=== PATIENT | female | born 1955 | race Caucasian/White ===

== ENCOUNTER 2022-07-03 20:49 | Inpatient (IN) | payer MEDICAID, OTHER ==
[~2022-07-03] VITALS: Ht 157.5 cm; Wt 37.8 kg
[2022-07-03] MEDS ORDERED: MORPHINE SULFATE 4 MG/ML SYR/VIAL IV ONE (21:15)
[2022-07-03] MEDS ORDERED: LACTATED RINGER'S 1,000 ML IV ONE (21:15)
[2022-07-03] MEDS ORDERED: ALBUTEROL SULF 2.5 MG/0.5ML(0.5%) NEB SOLN NEB ONE (21:15)
[2022-07-03] MEDS ORDERED: ONDANSETRON HCL 4 MG/2 ML VIAL IV ONE (21:15)
[2022-07-03 21:37] LABS: Red Cell Distribution Width 13.6 % (11.8-14.3)
[2022-07-03 21:39] LABS: Basophils # (auto) 0.1 10 ^3/uL (0-0.2); Basophils % (auto) 1.1 % (0.0-2.0); Eosinophils # (auto) 0.2 10 ^3/uL (0-0.8); Hematocrit 40.3 % (36.0-46.0); Hemoglobin 13.9 g/dL (12.2-16.2); Lymphocytes # (auto) 2.5 10 ^3/uL (0.4-5.4); Lymphocytes % (auto) 31.6 % (10.0-50.0); Mean Corpuscular Hemoglobin 33.1 pg (28.0-32.0); Mean Corpuscular Hgb Conc. 34.5 g/dL (32.0-36.0); Mean Corpuscular Volume 96.1 fL (80.0-100.0); Monocytes # (auto) 0.5 10 ^3/uL (0-1.3); Monocytes % (auto) 6.3 % (0.0-12.0); Neutrophils # (auto) 4.7 10 ^3/uL (1.6-8.6); Nucleated Red Blood Cells % 0.1 %; Red Blood Cells 4.19 10^6/uL (4.0-5.20); White Blood Cell 7.9 10^3/uL (4.4-10.8)
[2022-07-03 21:53] LABS: Albumin 2.7 g/dL (3.4-5.0); Calcium 7.8 mg/dL (8.5-10.1)
[2022-07-03 21:56] LABS: Bilirubin, Total 0.2 mg/dL (0.2-1.0); Total Protein 6.2 g/dL (6.4-8.2)
[2022-07-03 22:03] LABS: INR 1.07 (0.9-1.15); Partial Thromboplastin Time 29.4 sec (24.6-33.4)
[2022-07-03] MEDS ORDERED: POTASSIUM EFFERVESENT TAB 25 MEQ PO ONE (22:30)
[2022-07-04] MEDS ORDERED: MORPHINE SULFATE 4 MG/ML SYR/VIAL IV ONE (01:00)
[2022-07-04 01:37] LABS: Urine Bacteria NONE SEEN /hpf (None Seen); Urine Blood Negative /uL (Negative); Urine Hyaline Cast FEW /lpf (0 - 2); Urine WBC 2 /hpf (0 - 5)
[2022-07-04] MEDS ORDERED: LORazepam 2MG/ML-1ML VIAL IV ONE (04:30)
[2022-07-04] MEDS ORDERED: TEMAZEPAM 15 MG CAP PO PRN (06:15)
[2022-07-04] MEDS ORDERED: ACETAMINOPHEN 325 MG TAB PO PRN (06:15)
[2022-07-04] MEDS ORDERED: NITROGLYCERIN 0.4 MG SL TAB SL PRN (06:15)
[2022-07-04 06:35] LABS: Cholesterol 102 mg/dL (< 200); HDL Cholesterol 82 mg/dL (40-59); LDL Cholesterol 14 mg/dL (< 100); Triglycerides 143 mg/dL (< 150)
[2022-07-04] MEDS: METOPROLOL TARTRATE 25 MG TAB PO SCH ×3 (06:36→23:00)
[2022-07-04] MEDS: ENOXAPARIN SOD 40 MG/0.4 ML SYRINGE SC SCH (09:48)
[2022-07-04] MEDS: ASPirin 81 mg TAB PO SCH (09:49)
[2022-07-04] MEDS: PANTOPRAZOLE 40 MG TAB PO SCH (09:49)
[2022-07-04] MEDS: ONDANSETRON HCL 4 MG/2 ML VIAL IV PRN ×2 (12:50→19:10)
[2022-07-04] MEDS: MORPHINE SULFATE INJ 2 MG/ml SYRG IV PRN ×2 (12:51→19:11)
[2022-07-04 13:06] LABS: Amphetamine Screen, Urine POSITIVE (NEGATIVE); Barbiturate Scree,Urine NEGATIVE (NEGATIVE); Benzodiazephine Screen, Urine NEGATIVE (NEGATIVE); Cannabinoid Screen, Urine POSITIVE (NEGATIVE); Cocaine Screen, Urine NEGATIVE (NEGATIVE)
[2022-07-04 13:17] LABS: Opiate Scree,Urine POSITIVE (NEGATIVE); Phencyclidine Screen, Urine NEGATIVE (NEGATIVE)
[2022-07-04 13:30] LABS: BUN/Creatinine Ratio 21.8; Calcium 7.8 mg/dL (8.5-10.1); Magnesium 1.4 mg/dL (1.6-2.6); Potassium 3.8 mmol/L (3.5-5.1)
[2022-07-04] MEDS: SODIUM CHLORIDE 0.9% 1,000 ML IV SCH (14:12)
[2022-07-04] MEDS ORDERED: ATORVASTATIN 20 MG TAB PO SCH (22:00)
[2022-07-04 22:24] VITALS: BP 137/90
[2022-07-04 22:25] VITALS: BP 137/90
[2022-07-05] MEDS: HYDROcodone-ACET 5/325MG TAB PO PRN ×2 (00:06→06:56)
[2022-07-05] MEDS: SODIUM CHLORIDE 0.9% 1,000 ML IV SCH (02:05)
[2022-07-05 05:00] VITALS: BP 149/98
[2022-07-05 08:24] LABS: BUN/Creatinine Ratio 18.3; Calcium 7.5 mg/dL (8.5-10.1); Potassium 3.5 mmol/L (3.5-5.1)
[2022-07-05 08:30] VITALS: BP 118/72
[2022-07-05] MEDS ORDERED: POTASSIUM EFFERVESENT TAB 25 MEQ PO ONE (10:30)
[2022-07-05] MEDS: PANTOPRAZOLE 40 MG TAB PO SCH (11:16)
[2022-07-05] MEDS: ASPirin 81 mg TAB PO SCH (11:17)
[2022-07-05] MEDS: METOPROLOL TARTRATE 25 MG TAB PO SCH (11:17)
[2022-07-05] MEDS: ENOXAPARIN SOD 40 MG/0.4 ML SYRINGE SC SCH (11:18)
[2022-07-05] MEDS: MAGNESIUM SULFATE 1GM/100ML 100 ML IV SCH ×2 (11:37→12:00)
[2022-07-05] MEDS ORDERED: SACUBITRIL-VALSARTAN 24mg/26mg TAB PO SCH (22:00)
[2022-07-06] MEDS ORDERED: EMPAGLIFLOZIN 10 MG TAB PO SCH (07:00)
== END 2022-07-05 12:26 | disposition left against medical advice (07) | DRG 198 ==
LOC: ER 20:49 → EDBD 20:49 → TELE 07-04 06:07 → TELE-WESTW 07-04 21:25
PROVIDERS: ADMIT Nurse Practitioner; ATTEND Family Medicine
DX: I25.10 Atherosclerotic heart disease of native coronary artery without angina pectoris (principal); R64 Cachexia; E87.1 Hypo-osmolality and hyponatremia; E87.8 Other disorders of electrolyte and fluid balance, not elsewhere classified; E87.6 Hypokalemia; F15.10 Other stimulant abuse, uncomplicated; F17.210 Nicotine dependence, cigarettes, uncomplicated; I10 Essential (primary) hypertension; F10.129 Alcohol abuse with intoxication, unspecified; Z20.822 Contact with and (suspected) exposure to COVID-19; Z53.29 Procedure and treatment not carried out because of patient's decision for other reasons; I47.1 Supraventricular tachycardia; I25.2 Old myocardial infarction; Z90.49 Acquired absence of other specified parts of digestive tract; Z68.1 Body mass index [BMI] 19.9 or less, adult
CPT/HCPCS: 36415; 71045; 71275; 74176; 80048; 80053; 80061; 80307; 80320; 81001; 83036; 83690; 83735; 83880; 84443; 84484; 85025; 85379; 85610; 85730; 87426; 87804; 93005; 93306; 96361; 96372; 96374; 96375; 96376; G0378; J2405

== ENCOUNTER 2023-08-10 07:06 | Inpatient (IN) | payer OTHER, MEDICARE, MEDICAID ==
[~2023-08-10] VITALS: Ht 157.5 cm; Wt 33.4 kg
[~2023-08-10 07:06] MED LIST: CARV3.1240 PO; DOCU-94 PO; ERGO1CAP12 PO; PANT-62 PO; SERT25TA28 PO; SPIR25TA8 PO; THIA100T10 PO
[2023-08-10 09:00] LABS: Basophils # (auto) 0.1 10 ^3/uL (0-0.2); Eosinophils # (auto) 0.1 10 ^3/uL (0-0.8); Eosinophils % (auto) 0.6 % (0.0-7.0); Hemoglobin 8.6 g/dL (12.2-16.2); Lymphocytes # (auto) 2.3 10 ^3/uL (0.4-5.4); Lymphocytes % (auto) 17.6 % (10.0-50.0); Mean Corpuscular Hemoglobin 32.3 pg (28.0-32.0); Mean Corpuscular Hgb Conc. 31.8 g/dL (32.0-36.0); Mean Corpuscular Volume 101.8 fL (80.0-100.0); Monocytes # (auto) 0.7 10 ^3/uL (0-1.3); Neutrophils % (auto) 75.8 % (37.0-80.0); Red Blood Cells 2.66 10^6/uL (4.0-5.20); Red Cell Distribution Width 14.6 % (11.8-14.3); White Blood Cell 13.2 10^3/uL (4.4-10.8)
[2023-08-10] MEDS: SODIUM CHLORIDE 0.9% 1,000 ML IV ONE (09:15)
[2023-08-10 09:25] LABS: Platelet Estimate Markedly Increased
[2023-08-10 09:36] LABS: Chloride 101 mmol/L (98-107); Potassium 4.7 mmol/L (3.5-5.1); Sodium 133 mmol/L (136-145)
[2023-08-10 09:37] LABS: Anion Gap 5 (5-15); Calcium 7.9 mg/dL (8.5-10.1); Carbon Dioxide 27 mmol/L (20-30)
[2023-08-10 09:42] LABS: Blood Urea Nitrogen 18 mg/dL (9-23); Glucose 77 mg/dL (74-106)
[2023-08-10] MEDS: HYDROcodone-ACET 5/325MG TAB PO ONE (10:57)
[2023-08-10] MEDS ORDERED: NITROGLYCERIN 0.4 MG SL TAB SL PRN (12:30)
[2023-08-10] MEDS ORDERED: DOCUSATE SOD 100 MG CAP PO PRN (12:30)
[2023-08-10] MEDS ORDERED: MORPHINE SULFATE INJ 2 MG/ml SYRG IV PRN (12:30)
[2023-08-10] MEDS ORDERED: ACETAMINOPHEN 325 MG TAB PO PRN (12:30)
[2023-08-10 14:31] VITALS: PULSE 101; RESP 12; O2SAT 95
[2023-08-10] MEDS: cefTRIAXone 1GM/50ML D5W 50 ML IV ONE (15:34)
[2023-08-10] MEDS: MORPHINE SULFATE INJ 2 MG/ml SYRG IV PRN (15:35)
[2023-08-10] MEDS: SODIUM CHLORIDE 0.9% 1,000 ML IV SCH (16:14)
[2023-08-10 18:17] LABS: Urine Bacteria None Seen /hpf (None Seen); Urine WBC None Seen /hpf (0 - 5)
[2023-08-10 18:25] LABS: Urine Blood Negative /uL (Negative); Urine Clarity Turbid (Clear); Urine Color Yellow (Yellow); Urine Protein, UAD Negative (Negative); Urine Specific Gravity 1.022 (1.001-1.035); Urine Urobilinogen Normal (Negative)
[2023-08-10 19:30] VITALS: PULSE 90; RESP 13; O2SAT 96
[2023-08-10] MEDS: HYDROcodone-ACET 5/325MG TAB PO PRN (21:15)
[2023-08-10] MEDS: CARVEDILOL 3.125 MG TAB PO SCH (22:08)
[2023-08-10 22:54] VITALS: PULSE 97; RESP 16; O2SAT 100
[2023-08-10 23:00] VITALS: BP 97/60; PULSE 101; RESP 18; TEMP 97.9; O2SAT 100
[2023-08-11] VITALS (8 sets, daily range): BP systolic 107–132; BP diastolic 62–82; PULSE 100–112; RESP 17–20; TEMP 97.3–98.2; O2SAT 97–100
[2023-08-11] MEDS ORDERED: ASCO500T11 PO (05:01)
[2023-08-11] MEDS ORDERED: FER325T PO (05:01)
[2023-08-11] MEDS ORDERED: MAGN400S25 PO (05:22)
[2023-08-11] MEDS ORDERED: TRAM50TA2 PO (05:22)
[2023-08-11] MEDS ORDERED: MELA3TAB27 PO (05:22)
[2023-08-11] MEDS ORDERED: MULTTAB75 PO (05:22)
[2023-08-11] MEDS ORDERED: ENO40SY SC (05:22)
[2023-08-11] MEDS ORDERED: MAGN400T40 PO (05:22)
[2023-08-11] MEDS ORDERED: HYDR-4072 PO (05:23)
[2023-08-11] MEDS ORDERED: NITR0.4S29 SL (05:23)
[2023-08-11 06:13] LABS: Basophils # (auto) 0.1 10 ^3/uL (0-0.2); Eosinophils # (auto) 0.1 10 ^3/uL (0-0.8); Eosinophils % (auto) 0.7 % (0.0-7.0); Hemoglobin 7.7 g/dL (12.2-16.2); Monocytes # (auto) 0.8 10 ^3/uL (0-1.3); Red Cell Distribution Width 14.9 % (11.8-14.3)
[2023-08-11 06:16] LABS: Basophils % (auto) 1.1 % (0.0-2.0); Hematocrit 23.1 % (36.0-46.0); Lymphocytes # (auto) 2.1 10 ^3/uL (0.4-5.4); Lymphocytes % (auto) 18.7 % (10.0-50.0); Mean Corpuscular Hgb Conc. 33.2 g/dL (32.0-36.0); Mean Corpuscular Volume 102.4 fL (80.0-100.0); Monocytes % (auto) 6.9 % (0.0-12.0); Neutrophils % (auto) 72.6 % (37.0-80.0); Red Blood Cells 2.26 10^6/uL (4.0-5.20); White Blood Cell 11.1 10^3/uL (4.4-10.8)
[2023-08-11 06:23] LABS: INR 1.09 (0.9-1.15); Partial Thromboplastin Time 28.5 SEC (24.5-34.5); Prothrombin Time 11.4 sec (9.3-11.8)
[2023-08-11 06:45] LABS: Alanine Aminotransferase 15 U/L (7-40); Albumin 1.8 g/dL (3.2-4.8); Alkaline Phosphatase 143 U/L (46-116); Anion Gap 5 (5-15); Aspartate Aminotransferase 20 U/L (13-40); Blood Urea Nitrogen 24 mg/dL (9-23); Calcium 7.5 mg/dL (8.7-10.4); Carbon Dioxide 27 mmol/L (20-30); Chloride 103 mmol/L (98-107); Glucose 144 mg/dL (74-106); Potassium 3.8 mmol/L (3.5-5.1); Sodium 135 mmol/L (136-145)
[2023-08-11 06:46] LABS: Bilirubin, Total < 0.2 mg/dL (0.2-1.0); Total Protein 4.1 g/dL (5.7-8.2)
[2023-08-11] MEDS: cefTRIAXone 1GM/50ML D5W 50 ML IV SCH (11:00)
[2023-08-11] MEDS: ONDANSETRON HCL 4 MG/2 ML VIAL IV PRN (11:02)
[2023-08-11] MEDS: THIAMINE HCL 100 MG TAB PO SCH (11:03)
[2023-08-11] MEDS: PANTOPRAZOLE 40 MG TAB PO SCH (11:03)
[2023-08-11] MEDS: SPIRONOLACTONE 25 MG TAB PO SCH (11:03)
[2023-08-11] MEDS: ENOXAPARIN SOD 40 MG/0.4 ML SYRINGE SC SCH (11:12)
[2023-08-11] MEDS: Ensure HIGH Protein Chocolate 8oz Bottle PO SCH (18:00)
[2023-08-11] MEDS: SERTRALINE HCL 50 MG TAB PO SCH (21:49)
[2023-08-12] VITALS (11 sets, daily range): BP systolic 91–110; BP diastolic 58–68; PULSE 59–103; RESP 16–95; TEMP 97.7–98.9; O2SAT 96–100
[2023-08-12 06:08] LABS: Chloride 104 mmol/L (98-107); Potassium 4.5 mmol/L (3.5-5.1); Sodium 132 mmol/L (136-145)
[2023-08-12 06:09] LABS: Carbon Dioxide 22 mmol/L (20-30)
[2023-08-12 06:10] LABS: Calcium 7.5 mg/dL (8.5-10.1)
[2023-08-12 06:14] LABS: Glucose 89 mg/dL (74-106)
[2023-08-12 06:15] LABS: BUN/Creatinine Ratio 23.7 (10.0-20.0)
[2023-08-12 06:19] LABS: Blood Urea Nitrogen 9 mg/dL (9-23)
[2023-08-12 06:31] LABS: Eosinophils # (auto) 0.1 10 ^3/uL (0-0.8); Hemoglobin 7.2 g/dL (12.2-16.2); Lymphocytes # (auto) 2.5 10 ^3/uL (0.4-5.4)
[2023-08-12 06:39] LABS: Basophils # (auto) 0.2 10 ^3/uL (0-0.2); Basophils % (auto) 1.3 % (0.0-2.0); Eosinophils % (auto) 0.5 % (0.0-7.0); Hematocrit 21.8 % (36.0-46.0); Lymphocytes % (auto) 21.3 % (10.0-50.0); Mean Corpuscular Hemoglobin 33.9 pg (28.0-32.0); Mean Corpuscular Hgb Conc. 32.8 g/dL (32.0-36.0); Mean Corpuscular Volume 103.4 fL (80.0-100.0); Monocytes % (auto) 8.5 % (0.0-12.0); Neutrophils # (auto) 8.2 10 ^3/uL (1.6-8.6); Neutrophils % (auto) 68.4 % (37.0-80.0); Nucleated Red Blood Cells % 0.2 %; Red Blood Cells 2.11 10^6/uL (4.0-5.20); Red Cell Distribution Width 14.4 % (11.8-14.3); White Blood Cell 11.9 10^3/uL (4.4-10.8)
[2023-08-12] MEDS: PANTOPRAZOLE 40 MG/10 ML VIAL INJ IV SCH (08:33)
[2023-08-12] MEDS: IRON SUCROSE COMPLEX 100 ML IV SCH (12:49)
[2023-08-12] MEDS: MESALAMINE 400mg Delayed Release Cap PO SCH (15:08)
[2023-08-13] VITALS (7 sets, daily range): BP systolic 102–119; BP diastolic 63–83; PULSE 71–113; RESP 18–22; TEMP 37; O2SAT 96–99
[2023-08-13 05:51] LABS: Hemoglobin 9.4 g/dL (12.2-16.2); White Blood Cell 9.9 10^3/uL (4.4-10.8)
[2023-08-13 05:56] LABS: Hematocrit 27.9 % (36.0-46.0); Mean Corpuscular Hemoglobin 31.5 pg (28.0-32.0); Mean Corpuscular Hgb Conc. 33.6 g/dL (32.0-36.0); Mean Corpuscular Volume 93.8 fL (80.0-100.0); Red Blood Cells 2.98 10^6/uL (4.0-5.20)
[2023-08-13 06:01] LABS: Red Cell Distribution Width 21.4 % (11.8-14.3)
[2023-08-13 06:02] LABS: Basophils % (manual) 0 (0.0-2.0); Blast Cells 0; Eosinophils % (manual) 0 (0-7); Metamyelocytes % 0; Myelocytes % 0; Promyelocytes % 0; Reactive Lymphocytes 0
[2023-08-13 06:09] LABS: Carcinoembryonic Antigen 7.19 ng/mL (<=5.0); Folate (Folic Acid) 15.62 ng/mL (>5.38)
[2023-08-13 08:15] LABS: Anisocytosis Slight; Band Neutrophils % (manual) 4; Lymphocytes % (manual) 21 (10.0-50.0); Monocytes % (manual) 3 (0-12)
[2023-08-13 08:16] LABS: Platelet Estimate Increased
== END 2023-08-13 18:03 | DRG 562 ==
LOC: EDBD 07:06 → ER 07:06 → TELE 12:20 → TELE-WESTW 12:20
PROVIDERS: ADMIT Nurse Practitioner Family; ATTEND Internal Medicine
PROC: 30233N1 Transfusion of Nonautologous Red Blood Cells into Peripheral Vein, Percutaneous Approach (ICD-10-PCS; principal; 2023-08-12)
DX: S42.212A Unspecified displaced fracture of surgical neck of left humerus, initial encounter for closed fracture (principal); E43 Unspecified severe protein-calorie malnutrition; K92.2 Gastrointestinal hemorrhage, unspecified; R64 Cachexia; I50.42 Chronic combined systolic (congestive) and diastolic (congestive) heart failure; Z68.1 Body mass index [BMI] 19.9 or less, adult; K86.1 Other chronic pancreatitis; I11.0 Hypertensive heart disease with heart failure; R62.7 Adult failure to thrive; D75.838 Other thrombocytosis; D72.829 Elevated white blood cell count, unspecified; D64.9 Anemia, unspecified; F15.10 Other stimulant abuse, uncomplicated; F17.210 Nicotine dependence, cigarettes, uncomplicated; D75.839 Thrombocytosis, unspecified; K21.9 Gastro-esophageal reflux disease without esophagitis; K76.0 Fatty (change of) liver, not elsewhere classified; E78.5 Hyperlipidemia, unspecified; W01.0XXA Fall on same level from slipping, tripping and stumbling without subsequent striking against object, initial encounter; I25.2 Old myocardial infarction; Z90.49 Acquired absence of other specified parts of digestive tract; Z82.49 Family history of ischemic heart disease and other diseases of the circulatory system; Z82.0 Family history of epilepsy and other diseases of the nervous system; Z80.0 Family history of malignant neoplasm of digestive organs; Y93.89 Activity, other specified; Y92.89 Other specified places as the place of occurrence of the external cause; Y99.8 Other external cause status
CPT/HCPCS: 36415; 71045; 72170; 73020; 80048; 80053; 81001; 82270; 82378; 82607; 82746; 83540; 83550; 84484; 85007; 85025; 85027; 85610; 85730; 86850; 86900; 86901; 86920; 87081; 96365; 97110; 97116; 97163; 97530; 99291; C9113; G0378; J1756; J2405